=== PATIENT | male | born 1970 | race Caucasian/White ===

== ENCOUNTER 2020-03-11 11:53 | Outpatient (CLI) | payer BC, SELFPAY ==
--- NOTE | 2020-03-11 12:02 | XR_ITS ---
WS: [id number] LEFT SHOULDER: 2 VIEW(S) TECHNIQUE: Internal and external rotation. HISTORY: L SHOULDER IMPINGEMENT SYNDROME/L CHRONIC SHOULDER PAIN COMPARISON: None available. No fracture or dislocation or soft tissue abnormality. Ovoid calcific density projecting over the lateral humeral head consistent with calcific tendinitis. XR/XR shoulder LT min 2V* [id number] IMPRESSION: LEFT rotator cuff calcific tendinitis.
== END 2020-03-11 11:54 | disposition home or self-care (01) ==
PROVIDERS: PCP Electrodiagnostic Medicine; Visit Provider Electrodiagnostic Medicine
DX: M65.222 Calcific tendinitis, left upper arm (principal)
CPT/HCPCS: 73030

== ENCOUNTER 2020-04-27 07:03 | Outpatient (CLI) | payer BC, SELFPAY ==
--- NOTE | 2020-04-27 07:23 | MR_ITS ---
WS: [id number] MRI LEFT SHOULDER HISTORY: Rotator cuff tear, pain. LEFT shoulder pain with limited range of motion. COMPARISON: Shoulder radiograph 03/11/2020 TECHNIQUE: Multiplanar sequences of the shoulder joint are submitted. Moderate AC joint hypertrophy. Bone and soft tissue hypertrophy with significant encroachment upon th e anterior supraspinatus muscle and tendon. There are adjacent inflammatory changes with fluid. There is marrow edema and small amount of fluid and increased T2 signal in the AC ligament. No os acromion . Biceps tendon is in normal position. No definite rotator cuff tears are identified. No significant tendinopathy. Supraspinatus tendon is b eing deformed by the AC joint impingement. There is a small amount of fluid in the subscapularis rece ss. No muscle atrophy or edema. No labral tear identified. MR/MR shoulder LT wo con* [id number] IMPRESSION: 1. Moderate osteoarthritic changes involving the AC joint with significant imp ingement upon the anterior supraspinatus muscle and tendon. 2. No rotator cuff tear. 3. Muscles of the rotator cuff are intact with no atrophy or edema.
== END 2020-04-27 07:04 | disposition home or self-care (01) ==
LOC: RADSHAW 07:11
PROVIDERS: PCP Electrodiagnostic Medicine; Visit Provider Orthopaedic Surgery
DX: M25.512 Pain in left shoulder (principal)
CPT/HCPCS: 73221

== ENCOUNTER 2020-09-06 14:10 | Emergency (ER) | payer BC, SELFPAY ==
[2020-09-06 14:17] VITALS: BP 154/80; PULSE 83; RESP 18; O2SAT 93; BMI 29.8
--- NOTE | 2020-09-06 15:06 | W.ED.COVID ---
HPI - COVID General: Chief Complaint: General Medical Stated Complaint: injection per DR. King Time Seen by Provider: 09/06/20 14:18 Triage information: No fever, cough or shortness of breath. Exposure to COVID + person last 14 days History of Present Illness: HPI Narrative: 49-year-old male who recently tested positive for Covid. His symptoms began 1 week ago. He has had intermittent fever sinus drainage and cough. He has had mild taste sensation alterations but has not had complete anosmia. He has not had any significant shortness of breath he never had significant diarrhea. MD complaint: known COVID positive Prior testing date: 09/03/20 COVID 19 common symptoms: positive fever(s), chills, cough, non-productive cough, dyspnea, fatigue, body aches and nasal congestion; negative diarrhea COVID 19 other sytmptoms: negative chest pain, requiring oxygen, requiring more oxygen or respiratory distress Onset (ago): week(s) (1) Severity: mild Pertinent comorbid conditions: diabetes and obesity Treatment prior to arrival: none and steroids COVID Results: No Data to Display Review of Systems Const: Reports: fever(s), chills, body aches and fatigue ENMT: Reports: nasal congestion Card: Denies: chest pain, edema, dyspnea on exertion or orthopnea Resp: Reports: dyspnea and non-productive cough GI: Denies: diarrhea : Denies: flank pain, dysuria, urinary frequency or urinary urgency Skin/Breast: Denies: rash or pruritus Physical Exam Const: COMMON NORMALS: no acute distress GENERAL APPEARANCE: cooperative and comfortable ORIENTATION/CONSCIOUSNESS: Yes awake, Yes oriented to person, Yes oriented to place and Yes oriented to time HENMT: COMMON NORMALS: normocephalic, atraumatic and hearing grossly normal bilaterally HEAD & SCALP: normocephalic and atraumatic Neck/C-Spine: COMMON NORMALS: no JVD Resp: COMMON NORMALS: normal respiratory effort, No retractions, No use of accessory muscles and clear to auscultation bilaterally AUSCULTATION: clear to auscultation bilaterally Cardio: COMMON NORMALS: no JVD, regular rate, regular rhythm and No murmurs present (Cardio) RATE: regular rate RHYTHM: regular rhythm GI: COMMON NORMALS: Soft to palpation and No hepatosplenomegaly present AUSCULTATION: Yes normoactive bowel sounds PALPATION: Yes Soft to palpation, No Tenderness to palpation present (GI), No Guarding due to palpation present (GI) and Yes No hepatosplenomegaly present Extremity: COMMON NORMALS: normal to inspection, capillary refill normal, no clubbing, cyanosis or edema, no calf tenderness and no pedal edema Neuro: SENSORIUM/ORIENTATION: Yes oriented to person, Yes oriented to place and Yes oriented to time Skin: COMMON NORMALS: no rashes or lesions noted GENERAL SKIN EXAM: no rashes or lesions noted Course Vital Signs: Vital signs: Vital Signs Pulse Rate 94 09/06/20 17:05 Respiratory Rate 18 09/06/20 17:05 Blood Pressure 142/84 09/06/20 17:05 Pulse Oximetry 94 09/06/20 17:05 MDM - COVID MDM Narrative: Medical decision making narrative: Discussed the risks and benefits. Patient still does meet criteria his oxygen saturations are on the lower end but still acceptable is not requiring any oxygen. At the bedside he noted to be at 93-94 continuously. Discussed risk benefits alternatives. Discussed that this is an emergency authorization use medication he wishes to proceed consent signed we will go ahead and infuse monitor per protocol and discharge home. COVID Results: No Data to Display Monoclonal Antibody Treatments Inclusion/Exclusion Criteria weight >/= 40 kg and + direct Sars-Cov-2 test less than 7-10 days ago has diabetes Patient education patient/family/caregiver received/reviewed fact sheet, Emergency Use Authorization/unapproved drug status discussed with patient/family/caregiver, alternatives to this treatment discussed with patient/family/caregiver, risks and benefits of medication reviewed with patient/family/caregiver, patient/family/caregiver given opportunity for questions, which were answered and patient consents to receiving Monoclonal Antibody Treatment Plan for treatment Meets criteria for Monoclonal Antibody infusion and Does not meet criteria (DO NOT GIVE) Ordering Monoclonal Antibody infusion for today and Monoclonal antibody information given Discharge Plan Discharge Patient Disposition: Home Clinical Impression: COVID-19 Condition: Stable Prescriptions: No Action atorvastatin 40 mg Tablet 40 mg PO DAILY RF: 0 metformin 500 mg Tablet 500 mg PO DAILY RF: 0 prednisone 20 mg tablet 20 mg PO DAILY RF: 0 doxycycline hyclate 100 mg tablet 100 mg PO DAILY RF: 0 Trulicity 1.5 mg/0.5 mL pen injector 1.5 mg SUBCUT Q7D RF: 0 Discharge Orders: Discharge ED (Routine); Ordered 09/06/20 Ordered By: Ramesh King Referrals: Paramjit Nina, [Primary Care Provider] - Patient Instructions: Opioid Safety Coding Level of Care Code ED Fishing Manager for Chg Fwd Exam Comprehensive
[2020-09-06 15:34] VITALS: BP 140/76; PULSE 79; RESP 18; O2SAT 96
[2020-09-06 15:53] VITALS: BP 140/76; PULSE 73; RESP 21; O2SAT 94
[2020-09-06 16:23] VITALS: BP 120/77; PULSE 73; RESP 20; O2SAT 94
[2020-09-06 17:05] VITALS: BP 142/84; PULSE 94; RESP 18; O2SAT 94
== END 2020-09-06 17:07 | disposition home or self-care (01) ==
PROVIDERS: Emergency Provider Family Medicine; PCP Electrodiagnostic Medicine
DX: U07.1 COVID-19 (principal)
CPT/HCPCS: 96365; 99283

== ENCOUNTER 2021-06-14 08:29 | Outpatient (CLI) | payer BC, SELFPAY ==
--- NOTE | 2021-06-14 08:53 | XR_ITS ---
WS: [id number] Exam: XR chest 2V* [id number] Date/Time of Exam: 06/14/2021 9:08 AM Reason For Exam: DYSPNEA;TACHYCARDIA No priors. Findings: The lungs are clear and fully expanded. Costophrenic angles are sharp. No infiltrates. Bronchovascula r relief appears normal. Cardiac silhouette is unremarkable. Bony elements are intact. XR/XR chest 2V* [id number] IMPRESSION: Unremarkable chest radiograph.
== END 2021-06-14 08:30 | disposition home or self-care (01) ==
PROVIDERS: PCP Electrodiagnostic Medicine; Visit Provider Electrodiagnostic Medicine
DX: R06.00 Dyspnea, unspecified (principal); R00.0 Tachycardia, unspecified
CPT/HCPCS: 71046

== ENCOUNTER 2022-09-10 14:34 | Emergency (ER) | payer BC, SELFPAY ==
[2022-09-10 14:35] VITALS: BP 145/84; PULSE 85; RESP 17; TEMP 36.8; O2SAT 97; BMI 29.4
--- NOTE | 2022-09-10 14:49 | XRR_ITS ---
PROCEDURE INFORMATION: Exam: XR Left Shoulder Exam date and time: 09/10/2022 2:59 PM Age: 51 years old Clinical indication: Left; Patient HX: Pain in L shoulder with nki, PT unable to externally rotate; Additional info: Increasing pain TECHNIQUE: Imaging protocol: Radiologic exam of the left shoulder. Views: 2 or more views. COMPARISON: MR shoulder LT wo con* [id number] 04/27/2020 7:33 AM FINDINGS: Bones/joints: Negative for acute bony abnormality. No external rotation images are provided Soft tissues: Linear calcific density is seen in the lateral aspect of the left humeral head. These findings are consistent with calcific tendinitis XR/XR shoulder LT min 2V* [id number] IMPRESSION: 1. No acute bone abnormality. 2. No external rotation images. 3. Calcific tendinitis
--- NOTE | 2022-09-10 14:51 | W.ED.EXTPRO ---
HPI - Extremity Problem General: Chief complaint: Extremity Problem,Nontraumatic Stated complaint: shoulder injury Time Seen by Provider: 09/10/22 14:35 Source: patient Mode of arrival: ambulatory Limitations: no limitations History of Present Illness: 51-year-old male presents to the ER today for increasing left shoulder pain over the last week and a half. Patient reports no known injury that he is aware of. Patient reports the pain started so he went and saw a chiropractor. The chiropractor suggested possibly he had something out of place and they did several adjustments. Patient reports the pain has continued to worsen however to the point now he is unable to use his arm. Patient reports difficulty sleeping because he is in constant pain. Patient reports decreased range of motion secondary to worsening pain. He has been wearing a sling to help with the pain. Patient reports any forward flexion of the shoulder joint causes severe pain. Patient is able to abduct slightly however that is also starting to worsen. Patient reports movement the elbow does not hurt. Patient denies any prior known shoulder injury. He did have right shoulder surgery years ago. Patient has only taken [id number] medicines with minimal improvement. Review of Systems General: Reports: 10 or more systems reviewed and unremarkable except in HPI and below PFSH ED PFSH: Medical History Diabetes mellitus Surgical History History of shoulder surgery Social History Smoking and tobacco status: current some day smoker cigars Cigar details: not often Physical Exam Const: COMMON NORMALS: average body habitus, patient oriented x3, no limitations, healthy appearing, alert and well nourished; apparent distress (Patient uncomfortable) Neck/C-Spine: COMMON NORMALS: full ROM and no lymphadenopathy Resp: COMMON NORMALS: normal respiratory effort and No retractions Cardio: COMMON NORMALS: regular rate and regular rhythm RATE: regular rate RHYTHM: regular rhythm Extremity: NARRATIVE EXTREMITY EXAM: Patient wearing sling. On exam patient has significant tenderness over the acromion. Patient has weakness with the liftoff test, empty can test, and test of the infraspinatus. Patient has significant decreased range of motion. No swelling. Neuro: COMMON NORMALS: patient oriented x3 SENSORIUM/ORIENTATION: Yes alert Psych: COMMON NORMALS: mental status grossly normal, Normal thought process present and cooperative THOUGHT PROCESS: Normal thought process present Skin: COMMON NORMALS: no rashes or lesions noted and no wounds GENERAL SKIN EXAM: no rashes or lesions noted Course ED course: Patient is significantly tender in the left shoulder along with significant decreased range of motion. No known injury. We will get an x-ray at this time along with give patient some Toradol. Vital Signs: Vital signs: Vital Signs Temperature 98.3 F 09/10/22 14:35 Pulse Rate 85 09/10/22 14:35 Respiratory Rate 18 09/10/22 14:57 Blood Pressure 145/84 09/10/22 14:35 Pulse Oximetry 98 09/10/22 14:57 Oxygen Delivery Me thod Room Air 09/10/22 14:57 MDM - Extremity (Nontraumatic) Medical Decision Making Based on history and physical exam, I suspect a significant tendinitis versus rotator cuff tear. Patient is very tender on exam and has significantly decreased range of motion secondary to pain. X-ray indicates calcific tendinitis. I did discuss with patient that I do not advise him wearing a sling as it will cause frozen shoulder. We did discuss pendulum exercises and I highly encourage patient to do those at home in order to prevent frozen shoulder. We are going to do a Medrol Dosepak in addition to an anti-inflammatory for the next 7 to 10 days. MRI order will be placed and consult to case management for referral to Dr. Escobedo will also be placed. Recommended topical muscle rub and warm heat. Patient verbalized understanding and was in agreement with the treatment plan. Lab Data Radiology Impressions Shoulder X-Ray 09/10/22 14:49 IMPRESSION: 1. No acute bone abnormality. 2. No external rotation images. 3. Calcific tendinitis Critical Care Time Critical Care Time: Critical Care Time: No Discharge Plan Discharge Patient Disposition: Home Clinical Impression: Acute pain of left shoulder Condition: Stable Prescriptions: New Medrol (Antoni) 4 mg tablets,dose pack See Rx Instructions PO .COMPLEX Qty: 21 0RF Rx Instructions: orally per package directions ketorolac 10 mg tablet 10 mg PO Q8H PRN (Reason: pain) 3 Days Qty: 9 0RF methocarbamol 750 mg tablet 750 mg PO Q8H Qty: 21 0RF No Action (DME) pen needle, diabetic [BD Ultra-Fine Micro Pen Needle] 32 gauge x 1/4 needle See Rx Instructions .Route Qty: 300 3RF Rx Instructions: As directed atorvastatin 40 mg tablet 40 mg PO DAILY Qty: 300 3RF (DME) FreeStyle Jeff 2 Sensor Kit See Rx Instructions .ROUTE .MEDSUPPLY Qty: 6 2RF Rx Instructions: change every 14 days (DME) FreeStyle Jeff 2 [place] Misc See Rx Instructions .Route Qty: 1 0RF Rx Instructions: As directed Mounjaro 5 mg/0.5 mL pen injector 5 mg SUBCUT Q7D 30 Days Qty: 2.5 0RF Rx Instructions: 5mg weekly for 1 month; 7.5mg weekly for 1 month and 10 mg weekly and continue Mounjaro 7.5 mg/0.5 mL pen injector 7.5 mg SUBCUT Q7D 30 Days Qty: 2.5 0RF Rx Instructions: 7.5mg weekly for 1 month and 10 mg weekly and continue Mounjaro 10 mg/0.5 mL pen injector 10 mg SUBCUT Q7D 30 Days Qty: 2.5 0RF Rx Instructions: 10mg weekly and continue metformin 500 mg Tablet 500 mg PO DAILY prednisone 20 mg tablet 20 mg PO DAILY doxycycline hyclate 100 mg tablet 100 mg PO DAILY Discharge Orders: Discharge ED (Routine); Ordered 09/10/22 Ordered By: Koki Jackson Referrals: Paramjit Nina, [Primary Care Provider] - Discharge Diet: Usual diet Discharge Activity: Increase activity as tolerated Patient Instructions: Opioid Safety, Pain Management Activity Restrictions/Additional Instructions: Take Medrol Dosepak, Robaxin, and ketorolac as prescribed. Do pendulum exercises as discussed in the ER. Follow-up for MRI and to see ortho. Return to the ER with new or worsening symptoms. Coding Level of Care Code ED Access Control Officer for Adolph Diaz
[2022-09-10 14:57] VITALS: RESP 18; O2SAT 98
[2022-09-10] MEDS: ketorolac 60 mg/2 mL INJ IM (15:09)
--- NOTE | 2022-09-11 14:24 | PC.SOCIAL ---
Addendum entered by Romy Carroll 10/15/22 07:03: Patient had a follow up appointment scheduled with ortho - patient did attend appointment Addendum entered by Romy Carroll 09/26/22 11:37: Patient has a follow up appointment scheduled for Thursday, October 13, 2022 at 11:[address] Escobedo at ortho. Addendum entered by Romy Carroll 09/26/22 10:14: Patient had an MRI schedule for 09.26.22 - patient did attend appointment. Addendum entered by Romy Carroll 09/19/22 14:12: compensation manager sent the ortho clinic the information of when the patient has his MRI scheduled. Addendum entered by Romy Carroll 09/19/22 12:58: Patient has an MRI scheduled for Monday, September 26, 2022 at 8:00. Original Note: Orders for MRI Left shoulder faxed to centralized scheduling at this time. Message sent to follow up with Dr. Escobedo after MRI.
== END 2022-09-10 15:56 | disposition home or self-care (01) ==
PROVIDERS: Emergency Provider Physician Assistant; PCP Electrodiagnostic Medicine
DX: M25.512 Pain in left shoulder (principal); Z79.84 Long term (current) use of oral hypoglycemic drugs; E11.9 Type 2 diabetes mellitus without complications; F17.290 Nicotine dependence, other tobacco product, uncomplicated
CPT/HCPCS: 73030; 96372; 99284; J1885

== ENCOUNTER 2022-09-26 07:56 | Outpatient (CLI) | payer BC, SELFPAY ==
--- NOTE | 2022-09-26 08:11 | MR_ITS ---
WS: [id number] MRI LEFT SHOULDER HISTORY: PAIN IN LEFT SHOULDER COMPARISON: 04/27/2020 TECHNIQUE: Multiplanar sequences of the shoulder joint are submitted. Moderate AC joint arthritis. Narrowing of the AC joint with a small amount of fluid. Degenerative arianna nges along the AC joint articulations with osteophytes. Osteophyte encroaches upon the anterior supra spinatus. Small amount of fluid in the subacromial and subdeltoid bursa. There is also mild subacromi al impingement by an osteophyte. These findings have mildly progressed since the prior exam. No os ac romion. Biceps tendon remains in normal position with a small amount of fluid in the biceps tendon sh eath. Degenerative changes in the humeral head with osteophyte and subchondral cyst formation closely associated with the biceps tendon in the bicipital groove. Small amount of increased T2 signal with mild thickening involving the distal subscapularis tendon. N o full thickness defect. There is deformity of the anterior most supraspinatus muscle and tendon over the humeral head by subacromial impingement and AC joint impingement. There is edema within the musc le but no tendon tear. No labral tear is identified. No rotator cuff muscle atrophy or edema. MR/MR shoulder LT wo con* [id number] IMPRESSION: 1. Mild progression of the AC joint arthritis with impingement upon the anteri or supraspinatus myotendinous insertion. There is significant deformity of the anterior supraspinatus at the level of the AC joint by osteophytes. 2. Mild subacromial impingement. 3. Mild tendinopathy distal subscapularis tendon. No rotator cuff tear. 4. Progression of lesser tuberosity degenerative changes. Marrow edema with pr ogression of bony osteophyte development. Biceps tendon is closely associated w ith the degenerative changes progressing in the lesser tuberosity but no displa cement or tear.
== END 2022-09-26 07:57 | disposition home or self-care (01) ==
PROVIDERS: PCP Electrodiagnostic Medicine; Visit Provider Physician Assistant
DX: M19.012 Primary osteoarthritis, left shoulder (principal); M25.812 Other specified joint disorders, left shoulder; M67.814 Other specified disorders of tendon, left shoulder; M25.712 Osteophyte, left shoulder
CPT/HCPCS: 73221

== ENCOUNTER 2023-01-18 07:46 | Outpatient (CLI) | payer BC, SELFPAY ==
[2023-01-18 08:38] LABS: Alanine Aminotransferase 26 U/L (0-41); Albumin Level 4.1 g/dL (3.5-5.2); Alkaline Phosphatase 83 U/L (40-130); Aspartate Amino Transferase 21 U/L (0-40); Blood Urea Nitrogen 12 mg/dL (6-20); Calcium 9.1 mg/dL (8.5-10.5); Carbon Dioxide 30 mmol/L (22-29); Chloride 103 mmol/L (98-107); Cholesterol 126 mg/dL (0-200); Globulin 3.3 g/dL (1.3-4.6); Glomerular Filtration Rate 69.8 mL/min (90-130); Glucose 160 mg/dL (65-115); HDL Cholesterol 35 mg/dL (60-100); LDL Cholesterol Calculated 77 mg/dL (50-129); Osmolality Calculated 289 mOsm/kg (285-295); Sodium 138 mmol/L (136-145); Total Bilirubin 0.5 mg/dL (0.15-1.2); Total Protein 7.4 g/dL (6.6-8.7); Triglycerides 70 mg/dL (0-150)
[2023-01-18 09:08] LABS: Creatinine Urine, Random 209 mg/dL (39-259); Microalbum Creatinine Ratio Ur 5 mg/dL (0-20); Microalbumin Random Urine 1 ug/dL (0-20)
[2023-01-18 09:10] LABS: Estmated Average Glucose 171; Hemoglobin A1C 7.6 % (4.0-6.0)
== END 2023-01-18 07:47 | disposition home or self-care (01) ==
PROVIDERS: PCP Electrodiagnostic Medicine; Visit Provider Internal Medicine
DX: E11.9 Type 2 diabetes mellitus without complications (principal); E78.2 Mixed hyperlipidemia
CPT/HCPCS: 36415; 80053; 80061; 82044; 83036